=== PATIENT | female | born 1945 | race Caucasian/White ===

== ENCOUNTER → 2024-06-01 | Outpatient (CLI) | payer MEDICARE, SELFPAY ==
[2024-06-01 10:19] LABS: Basophils # (Auto) 0.1 Thou/mm3 (0.0-0.2); Basophils % (Auto) 1 % (0-2.5); Eosinophils # (Auto) 0.5 Thou/mm3 (0.0-0.5); Eosinophils % (Auto) 4 % (0-10); Hematocrit 45.7 % (36.0-46.0); Hemoglobin 14.9 g/dL (12.0-16.0); Immature Granulocytes % (Auto) 1 % (0-0); Immature Granulocytes Auto 0.17 Thou/mm3 (0.00-0.00); Lymphocytes # (Auto) 3.7 Thou/mm3 (1.0-4.8); Lymphocytes % (Auto) 32 % (10-50); Mean Corpuscular HGB Conc 32.6 g/dl (31.0-37.0); Mean Corpuscular Hemoglobin 29.9 pg (25.0-35.0); Mean Corpuscular Volume 92 fL (80-100); Monocytes # (Auto) 0.8 Thou/mm3 (0.0-0.8); Monocytes % (Auto) 7 % (0-12); Neutrophils # (Auto) 6.5 Thou/mm3 (1.8-7.7); Neutrophils % (Auto) 55 % (37-80); Nucleated Red Blood Cell % 0 /100 WBC (0); Platelet Count 318 Thou/mm3 (140-440); RDW Standard Deviation 46.3 fL (36.4-46.3); Red Blood Count 4.98 Miln/mm3 (4.00-5.20); White Blood Count 11.8 Thou/mm3 (3.6-11.0)
[2024-06-01 10:35] LABS: Glucose Estimated Average 137 mg/dL (80-131); Hemoglobin A1C 6.4 % Hgb (4.8-6.0)
[2024-06-01 10:39] LABS: Creatinine MALB Rnd Ur 111 mg/dL (30-125); Microalbumin Creat Ratio 237 mg/gCrea (<30); Microalbumin, Random Urine 263 mg/L (0-300)
[2024-06-01 10:49] LABS: Alanine Aminotransferase 63 U/L (10-49); Albumin/Globulin Ratio 2.2 (1.2-2.2); Alkaline Phosphatase 102 U/L (46-116); Anion Gap 8 (7-16); Aspartate Amino Transferase 101 U/L (0-34); BUN/Creatinine Ratio 23 Ratio (12-20); Bilirubin,Direct 0.1 mg/dL (0.0-0.3); Bilirubin,Total 0.4 mg/dL (0.3-1.2); Blood Urea Nitrogen 23 mg/dL (9-23); Calcium 10.2 mg/dL (8.3-10.6); Calcium (Corrected) 10.2 mg/dL (8.5-10.1); Carbon Dioxide 28.8 mMol/L (20.0-31.0); Cardiac Risk Estimate 4.9 RATIO (3.7-5.6); Chloride 97 mMol/L (98-107); Cholesterol 173 mg/dL (132-200); Globulin 2.3 gm/dL (2.3-3.5); Glucose 139 mg/dL (74-106); HDL Cholesterol 35 mg/dL (40-60); LDL Cholesterol,Calculated 83 mg/dL (0-130); Osmolality,Calculated 273 (275-295); Sodium 134 mMol/L (136-145); Thyroid Stimulating Hormone 4.14 uIU/mL (0.55-4.78); Total Protein 7.3 gm/dL (5.7-8.2); Triglycerides 274 mg/dL (30-150); eGFR 58 See Note
== END | disposition home or self-care (01) ==
LOC: COPL 09:19
PROVIDERS: PCP Family Medicine; Referring Provider Family Medicine; Visit Provider Psychiatry & Neurology Neurology
DX: I63.9 Cerebral infarction, unspecified (principal); I10 Essential (primary) hypertension; E78.5 Hyperlipidemia, unspecified; E11.49 Type 2 diabetes mellitus with other diabetic neurological complication; K76.0 Fatty (change of) liver, not elsewhere classified; E11.65 Type 2 diabetes mellitus with hyperglycemia
CPT/HCPCS: 36415; 80053; 80061; 82043; 82248; 82570; 83036; 84443; 85025

== ENCOUNTER → 2024-07-02 | Outpatient (CLI) | payer MEDICARE, SELFPAY ==
[2024-07-02 13:28] LABS: Collection Type, Urine Clean Catch
[2024-07-02 14:34] LABS: Bilirubin,Urine Negative (Negative); Blood,Urine Negative (Negative); Clarity,Urine Clear (Clear/Hazy); Color,Urine Drk-Yellow (Lt Yel-Yel); Glucose, Urine 4+ (Negative); Ketones,Urine Negative (Negative); Leukocyte Esterase,Urine Positive (Negative); Nitrite,Urine Negative (Negative); Protein,Urine 1+ (Neg - Trace); RBC,Urine 1 /hpf (0-3); Specific Gravity,Urine 1.024 (1.001-1.035); Squamous Epithelial Cell,Urine < 1 /hpf (0-5); Urobilinogen,Urine Negative mg/dL (0.0-1.0); WBC,Urine 16 /hpf (0-5)
== END | disposition home or self-care (01) ==
LOC: SLDO 13:18
PROVIDERS: PCP Family Medicine; Referring Provider Family Medicine; Visit Provider Family Medicine
DX: N30.00 Acute cystitis without hematuria (principal)
CPT/HCPCS: 81001; 87077; 87086; 87186

== ENCOUNTER → 2024-07-12 | Outpatient (CLI) | payer MEDICARE, SELFPAY ==
[2024-07-12 08:42] LABS: Glucose Estimated Average 148 mg/dL (80-131); Hemoglobin A1C 6.8 % Hgb (4.8-6.0)
[2024-07-12 08:53] LABS: Alanine Aminotransferase 57 U/L (10-49); Albumin, Serum 5.3 gm/dL (3.4-4.8); Alkaline Phosphatase 105 U/L (46-116); Aspartate Amino Transferase 92 U/L (0-34); Bilirubin,Direct 0.1 mg/dL (0.0-0.3); Bilirubin,Total 0.4 mg/dL (0.3-1.2); Cardiac Risk Estimate 5.7 RATIO (3.7-5.6); Cholesterol 201 mg/dL (132-200); HDL Cholesterol 35 mg/dL (40-60); LDL Cholesterol,Calculated 98 mg/dL (0-130); Total Protein 7.8 gm/dL (5.7-8.2); Triglycerides 342 mg/dL (30-150)
== END | disposition home or self-care (01) ==
LOC: COPL 07:26
PROVIDERS: PCP Family Medicine; Referring Provider Family Medicine; Visit Provider Family Medicine
DX: E11.65 Type 2 diabetes mellitus with hyperglycemia (principal); E78.5 Hyperlipidemia, unspecified; R74.01 Elevation of levels of liver transaminase levels
CPT/HCPCS: 36415; 80061; 80076; 83036

== ENCOUNTER → 2024-08-13 | Outpatient (CLI) | payer MEDICARE, SELFPAY ==
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
== END | disposition home or self-care (01) ==
PROVIDERS: PCP Family Medicine
DX: M85.842 Other specified disorders of bone density and structure, left hand (principal); S62.647A Nondisplaced fracture of proximal phalanx of left little finger, initial encounter for closed fracture; S69.92XA Unspecified injury of left wrist, hand and finger(s), initial encounter; V89.2XXA Person injured in unspecified motor-vehicle accident, traffic, initial encounter
CPT/HCPCS: 73110; 73130

== ENCOUNTER → 2024-08-20 | Outpatient (CLI) | payer MEDICARE, SELFPAY ==
[2024-08-20 12:10] LABS: Collection Type, Urine Clean Catch
[2024-08-20 13:40] LABS: Bacteria,Urine 2+; Bilirubin,Urine Negative (Negative); Blood,Urine Negative (Negative); Clarity,Urine Turbid (Clear/Hazy); Color,Urine Yellow (Lt Yel-Yel); Glucose, Urine 4+ (Negative); Hyaline Casts,Urine < 1 /hpf (0-1); Ketones,Urine Negative (Negative); Leukocyte Esterase,Urine Positive (Negative); Nitrite,Urine Negative (Negative); PH,Urine 7.5 (5.0-7.0); Protein,Urine 1+ (Neg - Trace); RBC,Urine 6 /hpf (0-3); Specific Gravity,Urine 1.027 (1.001-1.035); Squamous Epithelial Cell,Urine < 1 /hpf (0-5); Urobilinogen,Urine Negative mg/dL (0.0-1.0); WBC,Urine 180 /hpf (0-5)
== END | disposition home or self-care (01) ==
LOC: SLDO 12:02
PROVIDERS: Referring Provider Family Medicine; Visit Provider Family Medicine
DX: N30.00 Acute cystitis without hematuria (principal)
CPT/HCPCS: 81001; 87077; 87086; 87186

== ENCOUNTER → 2024-09-04 | Outpatient (CLI) | payer MEDICARE, SELFPAY ==
[2024-09-04 09:50] LABS: Basophils # (Auto) 0.1 Thou/mm3 (0.0-0.2); Basophils % (Auto) 1 % (0-2.5); Eosinophils # (Auto) 0.6 Thou/mm3 (0.0-0.5); Eosinophils % (Auto) 6 % (0-10); Hematocrit 44.4 % (36.0-46.0); Hemoglobin 14.4 g/dL (12.0-16.0); Immature Granulocytes % (Auto) 1 % (0-0); Immature Granulocytes Auto 0.11 Thou/mm3 (0.00-0.00); Lymphocytes # (Auto) 3.8 Thou/mm3 (1.0-4.8); Lymphocytes % (Auto) 37 % (10-50); Mean Corpuscular HGB Conc 32.4 g/dl (31.0-37.0); Mean Corpuscular Hemoglobin 29.6 pg (25.0-35.0); Mean Corpuscular Volume 91 fL (80-100); Monocytes # (Auto) 0.9 Thou/mm3 (0.0-0.8); Monocytes % (Auto) 9 % (0-12); Neutrophils # (Auto) 4.8 Thou/mm3 (1.8-7.7); Neutrophils % (Auto) 47 % (37-80); Nucleated Red Blood Cell % 0 /100 WBC (0); Platelet Count 321 Thou/mm3 (140-440); RDW Standard Deviation 47.9 fL (36.4-46.3); Red Blood Count 4.87 Miln/mm3 (4.00-5.20); White Blood Count 10.3 Thou/mm3 (3.6-11.0)
[2024-09-04 09:58] LABS: Glucose Estimated Average 117 mg/dL (80-131); Hemoglobin A1C 5.7 % Hgb (4.8-6.0)
[2024-09-04 10:24] LABS: Alanine Aminotransferase 19 U/L (10-49); Albumin, Serum 4.7 gm/dL (3.4-4.8); Alkaline Phosphatase 127 U/L (46-116); Anion Gap 10 (7-16); Aspartate Amino Transferase 28 U/L (0-34); BUN/Creatinine Ratio 16 Ratio (12-20); Bilirubin,Direct 0.2 mg/dL (0.0-0.3); Bilirubin,Total 0.6 mg/dL (0.3-1.2); Blood Urea Nitrogen 13 mg/dL (9-23); Calcium 10.5 mg/dL (8.3-10.6); Calcium (Corrected) 10.5 mg/dL (8.5-10.1); Carbon Dioxide 30.7 mMol/L (20.0-31.0); Cardiac Risk Estimate 5.1 RATIO (3.7-5.6); Chloride 95 mMol/L (98-107); Cholesterol 163 mg/dL (132-200); Creatinine (Component) 0.8 mg/dL (0.6-1.3); Globulin 2.4 gm/dL (2.3-3.5); Glucose 105 mg/dL (74-106); HDL Cholesterol 32 mg/dL (40-60); LDL Cholesterol,Calculated 77 mg/dL (0-130); Osmolality,Calculated 272 (275-295); Potassium 4.6 mMol/L (3.4-5.1); Sodium 136 mMol/L (136-145); Total Protein 7.1 gm/dL (5.7-8.2); Triglycerides 268 mg/dL (30-150); eGFR > 60 See Note
== END | disposition home or self-care (01) ==
LOC: SCTO 09:06
PROVIDERS: PCP Family Medicine; Referring Provider Psychiatry & Neurology Neurology; Visit Provider Internal Medicine Hematology & Oncology
DX: C50.412 Malignant neoplasm of upper-outer quadrant of left female breast (principal); E11.49 Type 2 diabetes mellitus with other diabetic neurological complication; E11.65 Type 2 diabetes mellitus with hyperglycemia; E78.5 Hyperlipidemia, unspecified; I10 Essential (primary) hypertension; R74.01 Elevation of levels of liver transaminase levels
CPT/HCPCS: 36415; 80053; 80061; 82248; 83036; 84443; 85025

== ENCOUNTER → 2024-09-06 | Outpatient (CLI) | payer MEDICARE, SELFPAY ==
[2024-09-04 13:56] VITALS: BMI 31.3
[2024-09-06 07:22] LABS: Basophils # (Auto) 0.1 Thou/mm3 (0.0-0.2); Basophils % (Auto) 1 % (0-2.5); Eosinophils # (Auto) 0.6 Thou/mm3 (0.0-0.5); Eosinophils % (Auto) 6 % (0-10); Hematocrit 48.8 % (36.0-46.0); Hemoglobin 16.1 g/dL (12.0-16.0); Immature Granulocytes % (Auto) 1 % (0-0); Immature Granulocytes Auto 0.11 Thou/mm3 (0.00-0.00); Lymphocytes # (Auto) 4.4 Thou/mm3 (1.0-4.8); Lymphocytes % (Auto) 41 % (10-50); Mean Corpuscular Hemoglobin 29.3 pg (25.0-35.0); Mean Corpuscular Volume 89 fL (80-100); Monocytes # (Auto) 1.1 Thou/mm3 (0.0-0.8); Monocytes % (Auto) 10 % (0-12); Neutrophils # (Auto) 4.6 Thou/mm3 (1.8-7.7); Neutrophils % (Auto) 42 % (37-80); Nucleated Red Blood Cell % 0 /100 WBC (0); Platelet Count 357 Thou/mm3 (140-440); RDW Standard Deviation 45.5 fL (36.4-46.3); Red Blood Count 5.49 Miln/mm3 (4.00-5.20); White Blood Count 10.9 Thou/mm3 (3.6-11.0)
[2024-09-06 07:37] LABS: INR 1.1 (0.9-1.3); Partial Thromboplastin Time 29.1 Seconds (22.0-36.0)
[2024-09-06 07:41] LABS: Blood Urea Nitrogen 14 mg/dL (9-23); Creatinine (Component) 0.9 mg/dL (0.6-1.3); Estimated Creatinine Clearance 60.5 mL/min (>60); eGFR > 60 See Note
[2024-09-06 08:35] VITALS: BP 166/71; PULSE 60; RESP 16; TEMP 36.1; O2SAT 93
--- NOTE | 2024-09-06 09:54 | XR_ITS ---
Examination: CT abdomen without intravenous contrast. Coronal 2-D reconstructions. Sagittal 2-D reconstructions. Date and time of exam:September 06, 2024 0959 hours INDICATIONS: History adrenal mass CTDI: vol (mGy): 9.48 DLP: (mGycm): 373 Technique: Axial images of the abdomen have been obtained, 3 mm slice thickness, without intravenous contrast 2-D sagittal coronal reconstructions Low dose protocols were performed. One or more of the following dose reduction techniques were used; automated exposure control, adjustment of the mA and/or KV according to patient size, use of iterative reconstruction technique. Findings: 4.2 cm right adrenal mass All images have intervening lung between the adrenal mass and the posterior abdominal surface IMPRESSION: No safe access for percutaneous adrenal mass biopsy
[2024-09-06 10:12] VITALS: BP 186/88; PULSE 67; RESP 12; O2SAT 98
[2024-09-06 10:20] VITALS: BP 178/87; PULSE 67; RESP 20; O2SAT 98
[2024-09-06 10:31] VITALS: BP 164/74; PULSE 66; RESP 15; TEMP 36.8; O2SAT 93
--- NOTE | 2024-09-06 10:51 | PC.NURSE ---
patient in [employer] pre op [id number], in ct department 0947, consent signed 0957, new order received for pre CT abdomen scan to determine if procedure will be completed. patient ambulated to bathroom and voided, placed in CT bed in prone position at 1005, ct abdomen completed. At [address] abdomen images and decided to cancel procedure. MD talked to patient and explained reason of cancellation. patient placed in rcave in [place] and transferred to company laborer to be discharged home. patient discharged home at 1031 with all belongings including walker. pt accompanied by .
== END | disposition home or self-care (01) ==
PROVIDERS: Radiology Diagnostic Radiology; PCP Family Medicine; Referring Provider Family Medicine; Visit Provider Family Medicine
DX: E27.8 Other specified disorders of adrenal gland (principal); Z53.8 Procedure and treatment not carried out for other reasons
CPT/HCPCS: 36415; 74150; 82565; 84520; 85025; 85610; 85730

== ENCOUNTER 2024-09-13 10:28 | Outpatient (RCR) | payer MEDICARE, SELFPAY ==
--- NOTE | 2024-09-13 13:48 | CTCFLWUP_ITS ---
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 Osteopenia. Gastroesophageal reflux disease. Never had EGD. Patient does not want to have EGD since one of her friends had major complications with EGD in the past REASON FOR TODAY?S VISIT: This is office follow-up visit. Ms. Shelton is here at [facility] accompanied by her . She denies any new complaints. Denies any cough, chest pain, abdominal pain or leg cramps. Ambulating with the help of her walker. Ms. Shelton denies any weight loss or loss of appetite Malignant neoplasm of upper-outer quadrant of left female breast [ICD10] C50.412 DATE OF DIAGNOSIS: 01/2011 STAGE/TNM: UNK T2 NX M0 TREATMENT HISTORY: Care?Plan Start?Date Cycle Day Intent HISTORY OF PRESENT ILLNESS: Michele Shelton is a 78-year-old female with following history. 12/17/2010: Patient had left breast stereotactic core needle biopsy. Pathology showed ER negative, RI negative, HER- 2/marah negative high-grade infiltrating ductal carcinoma with angiolymphatic invasion. 01/26/2011: Patient had left breast simple mastectomy which showed a 2.9 x 2.8 x 2.5 cm high-grade infiltrating ductal carcinoma with vascular invasion. No lymph nodes were identified in the surgical specimen. It was staged as a PT to disease. 03/11/2011: Patient was started on TAC chemotherapy. Patient received 6 cycles. Her last cycle was given on 06/28/2011. Since then she has been recurrence free. 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 09/18/2021: Right breast mammogram?BI-RADS Category 2: Benign findings. 02/01/2023: Unilateral right breast screening mammogram 03/03/2023: Bone density test? OTHER MEDICAL HISTORY/CONDITIONS: FAMILY HISTORY: ?Clone Family Hx? 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 amlodipine - 10 mg Each Day 2. atorvastatin - 40 mg Every day before sleep 3. Citracal + D Slow Release - 600 mg-12.5 mcg (500 unit) 1 tab one tab po twice a day 4. clonidine - 0.1 mg 1 tab Twice a Day 5. clopidogrel - 75 mg 1 tab As directed 6. fenofibrate - 160 mg Each Day 7. gemfibrozil - 600 mg 2 tab Daily 8. hydralazine - 50 mg Twice a Day 9. hydrALAZINE - 100 mg 2 tab As directed 10. hydrochlorothiazide - 50 mg 1 tab Daily 11. Jardiance - 25 mg 1 tab Daily 12. Kombiglyze XR - 5-500 mg tab Daily 13. latanoprost - 1 drops Every day before sleep 14. losartan - 100 mg 1 tab Daily 15. metformin - 1,000 mg Daily 16. metoprolol succinate - 100 mg 2 tab As directed 17. omega 1-uwc-dem-fish oil - 1,000 mg (120 mg-180 mg) 2 Capsule As directed 18. Ozempic - 2 mg/dose (8 mg/3 mL) 1 Weekly 19. Ozempic - 1 mg/dose (2 mg/1.5 mL) 1 Weekly 20. Plavix - 75 mg 1 tab Every day before sleep 21. pregabalin - 100 mg 2 Capsule As directed 22. Toujeo Max U-300 SoloStar - 300 unit/mL (3 mL) Twice a Day 23. traMADoL - 100 mg 1 tab As directed 24. Vascepa - 2 tab Twice a Day?Palabra Meds? Medications Last Reconciled by Sulma Shi MA on 09/13/2024 ALLERGIES: SULFA (SULFONAMIDE ANTIBIOTICS); Sulfa (Sulfonamide Antibiotics) REVIEW OF SYSTEMS: A complete 14-point review of systems was performed and is negative except as noted in interval history. PHYSICAL EXAMINATION: VITAL SIGNS: Temperature?97.4, B/P?187/82, Oxygen?Saturation?94% Weight?192.8?lbs PAIN: 0 - No pain GENERAL APPEARANCE: Appears well, in no apparent distress, appropriately interactive. HEENT: Normocephalic, no temporal wasting, normal conjunctiva, no scleral icterus, normal hearing, lips without lesions, neck normal range of motion. CARDIOVASCULAR: Not assessed. PULMONARY: Normal respiratory effort, no respiratory distress or use of accessory muscles, speaking in full sentences, no tachypnea. EXTREMITIES: No pedal edema or cyanosis. SKIN: Normal skin appearance. NEUROLOGIC: Alert and oriented x4. PSHYCHIATRIC: Appropriate affect, mood normal, behavior normal, intact thought and speech. LABORATORY DATA: I have personally reviewed and interpreted each of the patient?s relevant lab tests, abnormal findings are below: Date 09/04/24 09/06/24 ??WHITE?BLOOD?COUNT?(Thou/mm3) 10.3 10.9 ??RED?BLOOD?COUNT?(Miln/mm3) 4.87 5.49?H ??HEMOGLOBIN?(gm/dl) 14.4 16.1?H ??HEMATOCRIT?(%) 44.4 48.8?H ??PLATELET?COUNT?(Thou/mm3) 321 357 ??NEUTROPHILS?%,?AUTO?(%) 47 42 ??LYMPH?%,?AUTO?(%) 37 41 ??NEUTROPHILS,?AUTO?(Thou/mm3) 4.8 4.6 ??BLOOD?UREA?NITROGEN?(mg/dL) ? 14 ??CREATININE?(mg/dL) ? 0.90 ASSESSMENT/PLAN: The patient is clinically doing well. History of triple negative breast cancer as described above the left breast without any clinical evidence of recurrence at this time. History of diabetes The patient is currently not taking Citracal. Have recommended to get Citracal [id number] and start taking 1 tablet twice daily. Will see her back in clinic in 6 months for follow-up ORDERS: Order # Description [id number] DXA L-Spine and Hip [id number] Comprehensive Metabolic Panel - 12 + CBC with Auto Diff + MD Follow Up 1 Year RETURN TO CLINIC: BILLING AND COMPLIANCE: I reviewed external records from providers outside my specialty as summarized above. I spent a total of 50 minutes on this patient?s care on the day of their visit excluding time spent related to any billed procedures. This time includes time spent with the patient as well as time spent documenting in the medical record, reviewing patients records and tests, obtaining history, placing orders, communicating with other healthcare professionals, counseling the patient, family or caregiver, and/or care coordination for the diagnoses above. Electronically Signed by: Esau Diop MD T: 1:46 PM CC: Ebony?Abigail? PCP: Esau Diop Referring: Esau Diop This document was completed utilizing speech recognition software. Grammatical errors, random word insertions, pronoun errors, and incomplete sentences are an occasional consequence of this system due to software limitations, ambient noise, and hardware issues. Any formal questions or concerns about the content, text or information contained within the body of this dictation should be directly addressed to the provider for clarification.
== END 2024-09-17 23:59 | disposition home or self-care (01) ==
LOC: SCTC 10:28
PROVIDERS: PCP Family Medicine; Referring Provider Internal Medicine Hematology & Oncology; Visit Provider Internal Medicine Hematology & Oncology
DX: Z08 Encounter for follow-up examination after completed treatment for malignant neoplasm (principal); Z85.3 Personal history of malignant neoplasm of breast; Z90.12 Acquired absence of left breast and nipple; E11.9 Type 2 diabetes mellitus without complications; Z79.84 Long term (current) use of oral hypoglycemic drugs; Z79.85 Long-term (current) use of injectable non-insulin antidiabetic drugs; Z79.4 Long term (current) use of insulin
CPT/HCPCS: 99212; G0463

== ENCOUNTER → 2024-09-26 | Outpatient (CLI) | payer MEDICARE, SELFPAY ==
--- NOTE | 2024-09-26 10:56 | XR_ITS ---
Examination: Wrist, left 3 views Technique: Wrist AP, oblique, lateral 3 views Date and time of exam: September 26, 2024 at 1113 hrs. Comparison August 13, 2024 Indications: History fractures distal phalanx third digit August 13, 2024 Findings: Severe osteopenia Advanced narrowing first carpometacarpal joint No acute fractures Impression: Advanced osteoarthritis first carpometacarpal joint
--- NOTE | 2024-09-26 10:56 | XR_ITS ---
Examination: Hand, left 3 views Technique: Hand AP, oblique, lateral 3 views Date and time of exam: September 26, 2024 1111 hrs. Comparison August 13, 2024 Indications: Postop reduction internal fixation fractures middle phalanx third digit Findings: Severe osteopenia Healed fracture proximal phalanx fourth digit Significant healing fracture middle phalanx third digit Alignment of the fracture middle phalanx third digit has improved compared to August 13, 2024 exam Impression: Significant healing fracture middle phalanx third digit with improved alignment compared with August 13, 2024
== END | disposition home or self-care (01) ==
LOC: CDIM 10:37
PROVIDERS: PCP Family Medicine; Referring Provider Nurse Practitioner Gerontology; Visit Provider Nurse Practitioner Gerontology
DX: S62.623A Displaced fracture of middle phalanx of left middle finger, initial encounter for closed fracture (principal); X58.XXXA Exposure to other specified factors, initial encounter; M18.12 Unilateral primary osteoarthritis of first carpometacarpal joint, left hand
CPT/HCPCS: 73110; 73130

== ENCOUNTER 2024-10-17 13:30 | Outpatient (RCR) | payer MEDICARE, SELFPAY ==
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
--- NOTE | 2024-10-15 15:13 | PT.ODAYNRPT ---
PT Outpatient Daily Note OP Daily Note Outpatient Physical Therapy Treatment Date: 10/15/24 Visit Reasons: left middle finger fracture Subjective: Pt's finger is stiff including the ring and pinky finger Objective: Please see flow chart for list of ther ex performed Assessment: progressing with finger AROM in the 4th and 5th finger, however, minimal change with the 3rd digit due to hypomobility Plan: Continue with PT Length of Time (minutes) of Treatment: 30 Minutes Procedure Charges Therapeutic Exercise 30 minutes: Yes
--- NOTE | 2024-10-17 13:37 | PT.ODAYNRPT ---
PT Outpatient Daily Note OP Daily Note Outpatient Physical Therapy Treatment Date: 10/17/24 Visit Reasons: left middle finger fracture Subjective: Pt's fingers are moving more but still has pain unable to move middle finger. Objective: Please see flow chart for list of ther ex performed Assessment: tolerate exercises with minimal pain and slight improvement with ring and pinky index Plan: Continue with PT Length of Time (minutes) of Treatment: 30 Minutes Procedure Charges Therapeutic Exercise 30 minutes: Yes
== END 2024-10-17 23:59 | disposition home or self-care (01) ==
LOC: CPTX 13:30
DX: M79.645 Pain in left finger(s) (principal); R53.1 Weakness; S62.633D Displaced fracture of distal phalanx of left middle finger, subsequent encounter for fracture with routine healing; V49.9XXD Car occupant (driver) (passenger) injured in unspecified traffic accident, subsequent encounter
CPT/HCPCS: 97110; 97162

== ENCOUNTER 2024-10-31 14:00 | Outpatient (RCR) | payer MEDICARE, SELFPAY ==
--- NOTE | 2024-10-24 14:38 | PT.ODAYNRPT ---
PT Outpatient Daily Note OP Daily Note Outpatient Physical Therapy Treatment Date: 10/24/24 Visit Reasons: FX L MIDDLE FINGER Subjective: Pt's fingers are moving and bending with less pain lately. Pt notice some swelling around the middle finger Objective: Please see flow chart for list of ther ex performed Assessment: slow progression with finger flexion; post ice helped with pain and swelling today Plan: Continue with PT and ice Length of Time (minutes) of Treatment: 30 Minutes Procedure Charges Therapeutic Exercise 30 minutes: Yes
--- NOTE | 2024-10-26 14:31 | PTNOTE_ITS ---
PT Outpatient Daily Note OP Daily Note Outpatient Physical Therapy Treatment Date: 10/26/24 Visit Reasons: FX L MIDDLE FINGER Subjective: Pt c/o finger stiffness. Objective: Please see flow sheet for ther ex list. Assessment: Pt instructed on how to perform static stretch for HEP, pt agreed to perform at home. Isolated 3-5th digits during gripping interventions. Plan: Continue with POC. Assess response to HEP. Length of Time (minutes) of Treatment: 30 Minutes EQUITY RESEARCH ANALYST Service Modifier Method I: Divide the number of min of care provided by the EQUITY RESEARCH ANALYST/MIRIAM by the total min of care provided then multiply by 100. If greater than 11 percent modifier is required. Method II: Divide the total time of care provided to patient by 10 (round to the nearest whole number) and add 1 min. to set the minimum time requirement. If tr eatment total was 60 min., then 10% of 6 min PT CQ modifier applied: CQ Modifier applied Procedure Charges Therapeutic Exercise 30 minutes: Yes
--- NOTE | 2024-10-29 14:23 | PT.ODAYNRPT ---
PT Outpatient Daily Note OP Daily Note Outpatient Physical Therapy Treatment Date: 10/29/24 Visit Reasons: FX L MIDDLE FINGER Subjective: Pt's fingers are stiff. Pt mentioned she massage the middle finger which seems to help with the pain. Objective: Please see flow chart for list of ther ex performed Assessment: continues to slowly improve with finger flexion AROM. Pt still exhibit moderate edema in the 3rd digit. Plan: Continue with PT Length of Time (minutes) of Treatment: 30 Minutes Procedure Charges Therapeutic Exercise 15 minutes: Yes Manual Statistical Clerk Advertising 15 minutes: Yes
--- NOTE | 2024-10-31 14:26 | PTNOTE_ITS ---
PT Outpatient Daily Note OP Daily Note Outpatient Physical Therapy Treatment Date: 10/31/24 Visit Reasons: FX L MIDDLE FINGER Subjective: Pt reports L finger swelling is about the same, still has stiffness and pain. Objective: Please see flow sheet for ther ex list. Assessment: Continued with PROM of L 3rd digit to pt tolerance. Plan: Continue with POC. Length of Time (minutes) of Treatment: 30 Minutes EATING DISORDER SPECIALIST Service Modifier Method I: Divide the number of min of care provided by the EATING DISORDER SPECIALIST/GRADUATE ASSISTANT by the total min of care provided then multiply by 100. If greater than 11 percent modifier is required. Method II: Divide the total time of care provided to patient by 10 (round to the nearest whole number) and add 1 min. to set the minimum time requirement. If treatment total was 60 min., then 10% of 6 min PT CQ modifier applied: CQ Modifier applied Procedure Charges Therapeutic Exercise 30 minutes: Yes
--- NOTE | 2024-12-03 10:47 | PT.ODS1RPT ---
PT OP Progress/Discharge Note Date of Service: 12/03/24 Progress Note/DC Note Progress Note/Discharge Note: DC Note Patient Information Visit Reasons: FX L MIDDLE FINGER Service Continue Service or Discharge: Discharge Discharge Date: 12/03/24 Status Assessment: Pt has been seen for 7 visits (eval + 6 visits). Pt last treated on 10/31/24. Pt has not return to therapy and had a follow up appt. Pt mention she will call back to schedule post consultation with surgeon. Pt called 12/03/24 left a message that she will not return to therapy. Pt d/c from care per Pt's request and did not meet set goals; thank you for your referrals.
== END 2024-11-17 23:59 | disposition home or self-care (01) ==
LOC: CPTX 14:00
DX: M79.645 Pain in left finger(s) (principal); R53.1 Weakness; S62.633D Displaced fracture of distal phalanx of left middle finger, subsequent encounter for fracture with routine healing; V49.9XXD Car occupant (driver) (passenger) injured in unspecified traffic accident, subsequent encounter
CPT/HCPCS: 97110; 97140

== ENCOUNTER → 2024-11-08 | Outpatient (CLI) | payer MEDICARE, SELFPAY ==
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
== END | disposition home or self-care (01) ==
LOC: CDIM 14:17
PROVIDERS: PCP Family Medicine; Referring Provider Nurse Practitioner Gerontology; Visit Provider Nurse Practitioner Gerontology
DX: M79.642 Pain in left hand (principal); M13.832 Other specified arthritis, left wrist; S69.92XS Unspecified injury of left wrist, hand and finger(s), sequela; V89.2XXS Person injured in unspecified motor-vehicle accident, traffic, sequela
CPT/HCPCS: 73110; 73130

== ENCOUNTER → 2024-12-19 | Outpatient (CLI) | payer MEDICARE, SELFPAY ==
[2024-12-19 11:38] LABS: Basophils # (Auto) 0.1 Thou/mm3 (0.0-0.2); Basophils % (Auto) 1 % (0-2.5); Eosinophils # (Auto) 0.2 Thou/mm3 (0.0-0.5); Eosinophils % (Auto) 2 % (0-10); Hematocrit 47.3 % (36.0-46.0); Hemoglobin 15.7 g/dL (12.0-16.0); Immature Granulocytes Auto 0.11 Thou/mm3 (0.00-0.00); Lymphocytes # (Auto) 4.8 Thou/mm3 (1.0-4.8); Lymphocytes % (Auto) 45 % (10-50); Mean Corpuscular HGB Conc 33.2 g/dl (31.0-37.0); Mean Corpuscular Hemoglobin 29.6 pg (25.0-35.0); Mean Corpuscular Volume 89 fL (80-100); Monocytes # (Auto) 0.8 Thou/mm3 (0.0-0.8); Monocytes % (Auto) 8 % (0-12); Neutrophils # (Auto) 4.7 Thou/mm3 (1.8-7.7); Neutrophils % (Auto) 44 % (37-80); Nucleated Red Blood Cell # 0.00 Thou/mm3 (0.00-0.00); Nucleated Red Blood Cell % 0 /100 WBC (0); Platelet Count 337 Thou/mm3 (140-440); RDW Standard Deviation 45.3 fL (36.4-46.3); Red Blood Count 5.31 Miln/mm3 (4.00-5.20); White Blood Count 10.7 Thou/mm3 (3.6-11.0)
[2024-12-19 11:49] LABS: Glucose Estimated Average 137 mg/dL (80-131); Hemoglobin A1C 6.4 % Hgb (4.8-6.0)
[2024-12-19 11:51] LABS: Alanine Aminotransferase 20 U/L (10-49); Albumin, Serum 4.7 gm/dL (3.4-4.8); Albumin/Globulin Ratio 1.7 (1.2-2.2); Alkaline Phosphatase 100 U/L (46-116); Anion Gap 8 (7-16); Aspartate Amino Transferase 35 U/L (0-34); BUN/Creatinine Ratio 22 Ratio (12-20); Bilirubin,Total 0.4 mg/dL (0.3-1.2); Blood Urea Nitrogen 20 mg/dL (9-23); Calcium 10.3 mg/dL (8.3-10.6); Calcium (Corrected) 10.3 mg/dL (8.5-10.1); Carbon Dioxide 33.2 mMol/L (20.0-31.0); Cardiac Risk Estimate 5.9 RATIO (3.7-5.6); Chloride 96 mMol/L (98-107); Cholesterol 182 mg/dL (132-200); Creatinine (Component) 0.9 mg/dL (0.6-1.3); Globulin 2.7 gm/dL (2.3-3.5); Glucose 101 mg/dL (74-106); HDL Cholesterol 31 mg/dL (40-60); LDL Cholesterol,Calculated 80 mg/dL (0-130); Osmolality,Calculated 276 (275-295); Potassium 3.7 mMol/L (3.4-5.1); Sodium 137 mMol/L (136-145); Thyroid Stimulating Hormone 1.43 uIU/mL (0.55-4.78); Total Protein 7.4 gm/dL (5.7-8.2); Triglycerides 354 mg/dL (30-150); eGFR > 60 See Note
== END | disposition home or self-care (01) ==
LOC: COPL 10:34
PROVIDERS: PCP Family Medicine; Referring Provider Family Medicine; Visit Provider Psychiatry & Neurology Neurology
DX: I10 Essential (primary) hypertension (principal); I63.9 Cerebral infarction, unspecified; E11.49 Type 2 diabetes mellitus with other diabetic neurological complication; R42 Dizziness and giddiness; E11.65 Type 2 diabetes mellitus with hyperglycemia
CPT/HCPCS: 36415; 80053; 80061; 83036; 84443; 85025

== ENCOUNTER → 2025-01-11 | Outpatient (CLI) | payer MEDICARE, SELFPAY ==
--- NOTE | 2025-01-11 13:30 | XR_ITS ---
Examination: CT abdomen with intravenous contrast CT pelvis with intravenous contrast 2-D coronal reconstructions 2-D sagittal reconstructions Date and time of exam:January 11, 2025 1309 hours Comparison September 06, 2024 INDICATIONS: 4.2 cm right adrenal mass on abdomen CT September 06, 2024. CTDI: vol (mGy) 10.7 DLP: (mGycm) 633 Technique: Multiple axial sections of the abdomen and pelvis have been obtained. 64 slice high-resolution scanner used. 3 mm axial sections have been obtained, post intravenous injection 60 cc [id number] 2-D sagittal, coronal reconstructions obtained. Low dose protocols were performed. One or more of the following dose reduction techniques were used; automated exposure control, adjustment of the mA and/or KV according to patient size, use of iterative reconstruction technique. Findings: Fatty infiltration throughout the liver Absent gallbladder Common bile duct 14 mm No splenic mass Right adrenal mass again depicted, measuring 4.8 cm on the current study No pancreatic mass 4 mm left renal calculus, no hydronephrosis or ureteral calculi Abdominal aortic calcification no aneurysmal dilatation No pericecal inflammatory change No bladder mass or bladder calculi IMPRESSION: Right adrenal mass again depicted, measuring 4.8 cm on the current study
== END | disposition home or self-care (01) ==
LOC: CCTX 12:38
PROVIDERS: PCP Family Medicine; Referring Provider Family Medicine; Visit Provider Family Medicine
DX: E27.8 Other specified disorders of adrenal gland (principal)
CPT/HCPCS: 74177; A4649; Q9967

== ENCOUNTER → 2025-03-05 | Outpatient (CLI) | payer MEDICARE, SELFPAY ==
--- NOTE | 2025-03-05 12:00 | XR_ITS ---
Examination: Bone densitometry Date and time of exam:March 05, 2025 1222 hours INDICATIONS: Hysterectomy age 54 diabetic vitamin D 1 year breast cancer diagnosis, personal history osteoporosis Technique: Lumbar spine and hip total bone mineralization values of an calculated. Peak reference and age match control results have been displayed. Findings: Lumbar spine total bone mineralization is0.758 gm/cm2. This is 2.6 standard deviations below peak reference. This is 0.0 standard deviations at age-matched controls. Hip total bone mineralization is 0.628 gm/cm2 This is 2.6 standard deviations below peak reference. This is 0.6 standard deviations below age-matched controls Impression: There is osteoporosis based on lumbar spine measurements. There is osteoporosis based on hip measurements Lumbar mineralization is decreased 7.8% compared with March 03, 2023 Hip mineralization is decreased 12.7% compared with March 03, 2023
== END | disposition home or self-care (01) ==
LOC: CDIM 11:23
PROVIDERS: PCP Family Medicine; Referring Provider Internal Medicine Hematology & Oncology; Visit Provider Internal Medicine Hematology & Oncology
DX: M81.0 Age-related osteoporosis without current pathological fracture (principal); C50.412 Malignant neoplasm of upper-outer quadrant of left female breast
CPT/HCPCS: 77080

== ENCOUNTER → 2025-03-28 | Outpatient (CLI) | payer MEDICARE, SELFPAY ==
[2025-03-28 12:07] LABS: Basophils # (Auto) 0.1 Thou/mm3 (0.0-0.2); Basophils % (Auto) 1 % (0-2.5); Eosinophils # (Auto) 0.2 Thou/mm3 (0.0-0.5); Eosinophils % (Auto) 2 % (0-10); Hematocrit 47.4 % (36.0-46.0); Hemoglobin 15.5 g/dL (12.0-16.0); Immature Granulocytes Auto 0.08 Thou/mm3 (0.00-0.00); Lymphocytes # (Auto) 4.0 Thou/mm3 (1.0-4.8); Lymphocytes % (Auto) 46 % (10-50); Mean Corpuscular HGB Conc 32.7 g/dl (31.0-37.0); Mean Corpuscular Hemoglobin 29.8 pg (25.0-35.0); Mean Corpuscular Volume 91 fL (80-100); Monocytes # (Auto) 0.7 Thou/mm3 (0.0-0.8); Monocytes % (Auto) 9 % (0-12); Neutrophils # (Auto) 3.7 Thou/mm3 (1.8-7.7); Neutrophils % (Auto) 42 % (37-80); Nucleated Red Blood Cell # 0.00 Thou/mm3 (0.00-0.00); Nucleated Red Blood Cell % 0 /100 WBC (0); Platelet Count 273 Thou/mm3 (140-440); RDW Standard Deviation 45.9 fL (36.4-46.3); Red Blood Count 5.21 Miln/mm3 (4.00-5.20); White Blood Count 8.8 Thou/mm3 (3.6-11.0)
[2025-03-28 12:17] LABS: Glucose Estimated Average 140 mg/dL (80-131); Hemoglobin A1C 6.5 % Hgb (4.8-6.0)
[2025-03-28 12:18] LABS: Alanine Aminotransferase 25 U/L (10-49); Albumin, Serum 4.9 gm/dL (3.4-4.8); Albumin/Globulin Ratio 2.0 (1.2-2.2); Alkaline Phosphatase 98 U/L (46-116); Anion Gap 10 (7-16); Aspartate Amino Transferase 46 U/L (0-34); BUN/Creatinine Ratio 20 Ratio (12-20); Bilirubin,Total 0.4 mg/dL (0.3-1.2); Blood Urea Nitrogen 16 mg/dL (9-23); Calcium 10.4 mg/dL (8.3-10.6); Calcium (Corrected) 10.4 mg/dL (8.5-10.1); Carbon Dioxide 33.9 mMol/L (20.0-31.0); Cardiac Risk Estimate 4.8 RATIO (3.7-5.6); Chloride 94 mMol/L (98-107); Cholesterol 169 mg/dL (132-200); Creatinine (Component) 0.8 mg/dL (0.6-1.3); Globulin 2.4 gm/dL (2.3-3.5); Glucose 96 mg/dL (74-106); HDL Cholesterol 35 mg/dL (40-60); LDL Cholesterol,Calculated 78 mg/dL (0-130); Osmolality,Calculated 276 (275-295); Potassium 4.4 mMol/L (3.4-5.1); Sodium 138 mMol/L (136-145); Total Protein 7.3 gm/dL (5.7-8.2); Triglycerides 282 mg/dL (30-150); eGFR > 60 See Note
[2025-03-28 12:29] LABS: Creatinine MALB Rnd Ur 45 mg/dL (30-125); Microalbumin Creat Ratio 296 mg/gCrea (<30); Microalbumin, Random Urine 133 mg/L (0-300)
== END | disposition home or self-care (01) ==
LOC: COPL 11:05
PROVIDERS: PCP Family Medicine; Referring Provider Psychiatry & Neurology Neurology; Visit Provider Family Medicine
DX: E11.65 Type 2 diabetes mellitus with hyperglycemia (principal); E78.5 Hyperlipidemia, unspecified; I63.9 Cerebral infarction, unspecified; I10 Essential (primary) hypertension; R20.2 Paresthesia of skin
CPT/HCPCS: 36415; 80053; 80061; 82043; 82570; 83036; 85025